=== PATIENT | female | born 1980 | race Caucasian/White ===

== ENCOUNTER → 2021-03-31 | Day surgery (SDC) | payer OTHER ==
[~2021-03-31] VITALS: Ht 165.1 cm; Wt 75.7 kg
[~2021-03-31] MED LIST: CARAFATE1 GM PO; CETIRIZINE HCL10 MG PO; HYDROCOD-HOMAT1 EACH PO; HYDROCODON-ACE1 EAC2 PO; IBU800 MG PO; PROTONIX40 MG PO; PROVENTIL HFA6.7 GM INH; RELPAX20 MG PO; SYMBICORT 16010.2 GM INH; TRIAMCINOLONE LOTION TOP; TYLENOL EXTRA500 MG PO; VICODIN HP 10-1 EACH PO; WELLBUTRIN SR150 M1 PO
[2021-03-31 09:13] LABS: RED BLOOD COUNT 3.98 M/UL (4.00-5.10); WHITE BLOOD COUNT 7.6 K/UL (4.5-11.0)
[2021-03-31 09:29] LABS: BUN/CREATININE RATIO 14 (0-10)
== END | disposition home or self-care (01) ==
LOC: OR 07:30
PROVIDERS: Orthopaedic Surgery
DX: G56.03 Carpal tunnel syndrome, bilateral upper limbs (principal); M71.331 Other bursal cyst, right wrist; Z20.822 Contact with and (suspected) exposure to COVID-19
CPT/HCPCS: 36415; 80048; 85025; J0690; J1100; J1170; J1885; J2001; J2250; J2405; J2704; J3010; J7120